=== PATIENT | male | born 1990 | race Asian ===

== ENCOUNTER 2016-12-12 01:27 | Inpatient (IN) | payer SELFPAY ==
--- NOTE | 2016-12-12 01:30 | EDPHY ---
H & P HPI/ROS: HPI CHIEF COMPLAINT: Left foot swelling, redness, infection HISTORY OF PRESENT ILLNESS: patient 26-year-old male, history of IV drug use, he presents emergency room with left foot pain swelling and redness times 48 hours. Progressively getting worse. Denies direct IV drug use into his foot. Denies chills, fever. Denies shortness of breath or chest pain. denies at other IV drug site infections, denies recent infection MRSA. Denies trauma to his foot. Past Medical History: Denies medical history Past Surgical History: back surgery Social History: denies daily alcohol does admit to IV drug use. Family History: Noncontributory ROS REVIEW OF SYSTEMS: A comprehensive 10 point review of systems is otherwise negative aside from elements mentioned in the history of present illness. Exam Constitutional triage nursing summary reviewed, vital signs reviewed, awake/ alert. Eyes normal conjunctivae and sclera, EOMI, PERRLA. HENT normal inspection, atraumatic, moist mucus membranes, no epistaxis, neck supple/ no meningismus, no raccoon eyes. Respiratory clear to auscultation bilaterally, normal breath sounds, no respiratory distress, no wheezing. Cardiovascular rate normal, regular rhythm, no murmur, no edema, distal pulses normal. Gastrointestinal soft, non-tender, no rebound, no guarding, normal bowel sounds, no distension, no pulsatile mass. Genitourinary no CVA tenderness. Musculoskeletal left foot: warm, red, swollen over the dorsum of the foot. Top of Foot: Area of induration/fluctuance 3cm x 2cm. Good pulse. Good cap refill. erythema that goes up to the ankle, no crepitus, no calf pain. Erythema has been outlined consistent with cellulitis. no midline vertebral tenderness, full range of motion, no calf swelling, no tenderness of extremities , no meningismus, good pulses, neurovascularly intact. Skin pink, warm, & dry, no rash, skin atraumatic. Neurologic awake, alert and oriented x 3, AAOx3, moves all 4 extremities equally, motor intact, sensory intact, CN II-XII intact, normal cerebellar, normal vision, normal speech. Psychiatric normal mood/affect. Heme/Lymph/Immune no lymphadenopathy. Differential Diagnosis: Includes but is not limited to in a particular MRSA skin infection, strep infection, cellulitis, foot abscess, IV drug use infection site Medical Decision Making: plan for this patient x-ray left foot to evaluate for osteo in gas. Blood cultures, lactic acid acute, IV vancomycin, patient need to be admitted given the extensive cellulitis. I will also do a bedside ultrasound to see if there is a pus pocket to I and D. Re-evaluation: 0211AM I did perform a bedside ultrasound I am unable to visualize a pus pocket that needs to be drained. Given that I do not visualize any acute area of fluid collection I will not I and D at bedside. He will most likely need an MRI of his foot for further evaluation to see if there is a small pus pocket. Orthopedics or Podiatry to see. I will admitted to the hospital for left foot cellulitis and possible abscess. IV vancomycin has been ordered. Blood cultures. It is [place] [id number]. patient is agreeable on being admitted. He is afebrile here. Vital signs stable. 0216AM: Spoke with Dr. García who agrees to admit this patient. Reason for admission left foot cellulitis. Possible abscess. Patient need MRI of foot for further evaluation. ED x-ray: left foot: soft tissue swelling. Dorsum of the foot. No gas. No osteo. Source: Patient Constitutional: Initial Vital Signs Temperature (C) 37.3 C 12/12/16 01:30 Heart Rate 102 H 12/12/16 01:30 Respiratory Rate 16 12/12/16 01:30 Blood Pressure 135/89 H 12/12/16 01:30 O2 Sat (%) 97 12/12/16 01:30 O2 Delivery Mode Room Air Allergies/Adverse Reactions: No Known Allergies Allergy (Unverified 12/12/16 01:37) Home Medications: Medication Instructions Recorded Herbals/Supplements -Info Only 1 ea PO DAILY 12/12/16 Ibuprofen/Diphenhydramine Cit 1 each PO HS PRN 12/12/16 [Advil Pm Caplet] Magnesium Oxide [Magnesium Oxide 400 mg PO DAILY 12/12/16 400 mg (*)] Cephalexin 500 mg PO QID #32 capsule 12/14/16 oxyCODONE HCL/ACETAMINOPHEN 1 each PO QID #18 tablet 12/14/16 [Percocet 5-325 mg Tablet] Medical Decision Making - Data Points Laboratory Results: Laboratory Results 12/12/16 01:45 12/12/16 01:45 Medications Given: Discontinued Medications Acetaminophen (Tylenol) 650 mg PO Q4HRS PRN PRN Reason: Pain, Mild/Fever, Can Take PO Stop: 06/10/17 02:52 Last Admin: 12/13/16 00:08 Dose: 650 mg Hydromorphone HCl (Dilaudid) 0.4 mg IVP Q4HRS PRN PRN Reason: Pain, Severe Unable to Take PO Stop: 12/22/16 03:00 Last Admin: 12/12/16 16:19 Dose: 0.4 mg Hydromorphone HCl (Dilaudid) 0.4 - 0.8 mg IVP Q2H PRN PRN Reason: Pain, Severe Unable to Take PO Stop: 12/22/16 03:00 Last Admin: 12/13/16 00:03 Dose: 0.8 mg Hydromorphone HCl (Dilaudid) 1 mg IVP ONCE ONE Stop: 12/12/16 20:01 Last Admin: 12/12/16 20:16 Dose: 1 mg Sodium Chloride (Ns) 1,000 mls @ 0 mls/hr IV ONCE ONE PRN Reason: Wide Open Stop: 12/12/16 01:36 Last Admin: 12/12/16 02:00 Dose: 1,000 mls Vancomycin HCl 1.25 gm/ (Dextrose) 250 mls @ 166.67 mls/hr IV EDNOW ONE PRN Reason: Protocol Stop: 12/12/16 03:29 Last Admin: 12/12/16 02:50 Dose: 250 mls Sodium Chloride (Ns) 1,000 mls @ 100 mls/hr IV CONT LUCIO Stop: 06/10/17 02:59 Last Admin: 12/12/16 04:24 Dose: 1,000 mls Cefazolin Sodium/Dextrose (Ancef 2 Gm (Premix)) 100 mls @ 200 mls/hr IV Q8H LUCIO PRN Reason: Protocol Stop: 01/11/17 11:44 Last Admin: 12/12/16 20:08 Dose: 100 mls Lactated Ringer's (Lr) 1,000 mls @ 0 mls/hr IV ONCE ONE PRN Reason: Per Protocol Stop: 12/12/16 13:44 Last Admin: 12/12/16 13:49 Dose: 1,000 mls Lorazepam (Ativan Injection) 1 mg IVP Q4HRS PRN PRN Reason: Anxiety, Unable to Take PO Stop: 06/10/17 20:03 Last Admin: 12/13/16 00:03 Dose: 1 mg Midazolam HCl (Versed) 2 mg IVP ONCALL ONE Stop: 12/12/16 13:58 Last Admin: 12/12/16 16:06 Dose: Not Given Morphine Sulfate (Morphine) 4 mg IVP EDNOW ONE Stop: 12/12/16 01:37 Last Admin: 12/12/16 01:58 Dose: 4 mg Ondansetron HCl (Zofran) 4 mg IVP EDNOW ONE Stop: 12/12/16 01:37 Last Admin: 12/12/16 01:55 Dose: 4 mg Oxycodone HCl (Oxycodone Ir) 5 - 10 mg PO Q3HRS PRN PRN Reason: Pain, Severe Able to Take PO Stop: 12/22/16 02:52 Last Admin: 12/13/16 00:02 Dose: 10 mg Departure - Departure Disposition: [facility] Clinical Impression: Cellulitis Qualifiers: Site of cellulitis: extremity Site of cellulitis of extremity: lower extremity Laterality: left Qualified Code(s): L03.116 - Cellulitis of left lower limb Condition: Fair
[2016-12-12] MEDS ORDERED: NS 1,000 ML IV ONE (01:35)
[2016-12-12] MEDS ORDERED: VANCOMYCIN 1.5 GM in D5W 250 ML IV ONE (01:35)
[2016-12-12] MEDS ORDERED: ONDANSETRON 4 MG/2 ML VIAL IVP ONE (01:36)
[2016-12-12 01:51] LABS: % IMMATURE GRANULYOCYTES 0.5 % (0.0-1.1); ABSOLUTE IMMATURE GRANULOCYTES 0.09 10^3/uL (0.00-0.10); ADD DIFF? NO; ADD MORPH? NO; ADD SCAN? NO; ATYPICAL LYMPHOCYTE FLAG 20 (0-99); FRAGMENT RBC FLAG 0 (0-99); HEMATOCRIT 40.5 % (40.0-51.0); LEFT SHIFT FLG 0 (0-99); LIPEMIA HEMOLYSIS FLAG 90 (0-99); MEAN CELL HEMOGLOBIN 34.4 pg (27.9-34.1); MEAN CELL HEMOGLOBIN CONCENTR. 34.6 g/dL (32.4-36.7); MEAN CELL VOLUME 99.5 fL (81.5-99.8); MEAN PLATELET VOLUME 9.8 fL (8.7-11.7); PLATELET CLUMPS FLAG 30 (0-99); PLATELET COUNT 225 10^3/uL (150-400); RED BLOOD CELL COUNT 4.07 10^6/uL (4.40-6.38); RED CELL DISTRIBUTION WIDTH 12.3 % (11.5-15.2)
[2016-12-12 02:00] LABS: SEDIMENTATION RATE 24 MM/HR (0-15)
[2016-12-12] MEDS ORDERED: VANCOMYCIN 1.25 GM in D5W 250 ML IV ONE (02:00)
[2016-12-12 02:15] LABS: ANION GAP 12 mEq/L (8-16); C-REACTIVE PROTEIN 53.7 mg/L (<10.0); CALCIUM 9.2 mg/dL (8.5-10.4); CARBON DIOXIDE 23 mEq/l (22-31); CHLORIDE 106 mEq/L (97-110); CREATININE 0.8 mg/dL (0.7-1.3); GLOMERULAR FILTRATION RATE > 60; GLUCOSE 99 mg/dL (70-100); SODIUM 141 mEq/L (134-144)
[2016-12-12 02:46] LABS: PROCALCITONIN 0.14 ng/mL (0.02-0.10)
[2016-12-12] MEDS ORDERED: ONDANSETRON 4 MG/2 ML VIAL IVP PRN (02:53)
[2016-12-12] MEDS ORDERED: ONDANSETRON DISINTEGRATING 4 MG TAB PO PRN (02:53)
[2016-12-12] MEDS ORDERED: NS 1,000 ML IV SCH (03:00)
[2016-12-12] MEDS ORDERED: NICOTINE 14 MG/24 HR PATCH TD PRN (03:05)
--- NOTE | 2016-12-12 04:16 | GHP ---
[f rep st] HISTORY AND PHYSICAL DATE OF ADMISSION: 12/12/2016 CHIEF COMPLAINT: Left foot pain. HISTORY OF PRESENT ILLNESS: The patient is a 26-year-old male with a history of IV drug abuse who presents to the emergency department complaining of left foot redness, swelling, and pain. His symptoms started approximately 2 days ago with aching and redness. The redness has spread across the dorsum of his foot and up into the ankle. He now has a very sore lump on the dorsum of his left foot which has been rubbing against his shoe and causing quite a bit of pain. He denies fevers, chills, or rigors. He denies chest pain or shortness of breath. He reports he last used IV heroin approximately 5 hours ago. He is using about a quarter of a gram per day and uses a very small amount every 5-6 hours to avoid withdrawal. He injects into his arms bilaterally. He denies injection into other sites including his foot. He denies any trauma or injury to the foot. He has no prior history of abscess or MRSA infections. He was clean from heroin for several months after having a naltrexone implant placed in 09/2015. He believes it was supposed to last for 12 months. In September of this year, he tried smoking heroin and noticed that it worked. He has continued to use IV heroin since then. He has obtained Suboxone off the street and intermittently uses this to fend off withdrawal. In the emergency department, he received a L of normal saline. Blood cultures were drawn. He was given 1.25 grams of vancomycin. He is admitted to the hospital for further management. PAST MEDICAL HISTORY: 1. Opioid dependence using IV heroin. 2. Tobacco abuse. MEDICATIONS: None. ALLERGIES: No known drug allergies. 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 He smokes half pack of cigarettes per day. He reports occasional alcohol use. He uses IV heroin, a quarter of a gram a day. FAMILY HISTORY: His parents are both alive and healthy. REVIEW OF SYSTEMS: A 10-point review of systems was performed and is negative except as per HPI. OBJECTIVE: VITAL SIGNS: Temperature is 37.3, blood pressure 135/89, heart rate 102, respiratory rate 16. He is 97% on room air. GENERAL: The patient is awake, alert, oriented, in no acute distress. HEENT: Head is atraumatic, normocephalic. Pupils equal, round, and reactive to light. Extraocular muscles intact. Oropharynx is clear. Mucous membranes are moist. NECK: Supple. There is no JVD. HEART: Regular rate and rhythm without murmur. LUNGS: Clear to auscultation bilaterally. ABDOMEN: Soft, nondistended, nontender with normoactive bowel sounds. EXTREMITIES: Warm, well perfused with 2+ peripheral pulses. His left foot has a 3-4 cm palpable area of fluctuance across the dorsum of his foot in the region of his 1st and 2nd metatarsal. There is surrounding erythema which spreads proximally to the ankle region and spreads across the dorsum of his foot abutting the plantar surface. There is no drainage or purulence and therefore cultures are not obtained. Foot x-ray is personally reviewed and interpreted and appears negative for any subcutaneous air or obvious evidence of osteomyelitis. ASSESSMENT AND PLAN: The patient is a 26-year-old male, admitted to the hospital with a history of IV drug abuse. He is admitted to the hospital with a left foot cellulitis and suspected abscess. 1. Sepsis secondary to left foot cellulitis. He meets systemic inflammatory response syndrome criteria for sepsis based on heart rate of 102 and white blood cell count of 19,000. Lactate and renal function are normal. Blood cultures are drawn. He received a L of saline in the emergency department and 1.25 g of vancomycin. Will continue the vancomycin. I do not hear a heart murmur. An MRI is ordered for the morning. Will request a podiatry consult in the morning as this may warrant operative drainage. Pain control with Tylenol, p.r.n. oxycodone, and p.r.n. IV Dilaudid. The patient is made n.p.o. for now until it is determined whether or not he needs I&D. 2. Opioid dependence. The patient is an active IV drug user. He will require pain control with opioid pain medications, thus he is unlikely to withdraw. I advised him to not take any of his Suboxone which he has obtained off the street and uses intermittently, as this may precipitate withdrawal if he has active opiates on board. Will send HIV and hepatitis C screening tests. Case management consult to review community resources for Naltrexone as pt is interested in treatment. 3. Tobacco abuse p.r.n. NicoDerm patch is ordered. 4. Deep venous thrombosis prophylaxis. Patient is low risk. We will place SCDs for now in the event he undergoes operative intervention tomorrow. CODE STATUS: Patient is full code. DISPOSITION: Patient admitted to inpatient status will likely require greater than 48 hours hospitalization for ongoing management of his left cellulitis with suspicion for associated abscess. /[id number]/MODL MTDD
[2016-12-12] MEDS: HYDROmorphONE/DILAUDID 1 MG/ML SYR IVP PRN ×3 (04:25→16:19)
[2016-12-12] MEDS: oxyCODONE IR 5 MG TAB PO PRN ×4 (04:26→20:10)
[2016-12-12] MEDS: ACETAMINOPHEN 325 MG TAB PO PRN ×3 (04:35→20:09)
[2016-12-12 07:22] LABS: PHENCYCLIDINE URINE BCH < 6 ng/ml (NEGATIVE); PHENCYCLIDINE URINE BCH NEGATIVE (NEGATIVE)
[2016-12-12] MEDS ORDERED: GADOBUTROL 10 ML VIAL IVP ONE (07:23)
[2016-12-12 07:33] LABS: TETRAHYDROCANNABINOL URINE 243 ng/mL (NEGATIVE)
--- NOTE | 2016-12-12 12:03 | HOSPPROG ---
Hospitalist Progress Note Assessment/Plan: * right lower extremity cellulitis and abscess * IV Ancef * podiatry will see probably needs drainage * heroin abuse Subjective: Leg feels little better Objective: Vital Signs Temp Pulse Resp BP Pulse Ox 36.8 C 67 14 95/57 L 98 12/12/16 07:49 12/12/16 07:49 12/12/16 07:49 12/12/16 07:49 12/12/16 07:49 12/11/16 12/12/16 12/13/16 05:59 05:59 05:59 Intake Total 1250 Output Total 700 Balance 1250 -700 MRI results reviewed - Physical Exam Constitutional: no apparent distress, appears nourished, not in pain Eyes: anicteric sclera, EOMI Ears, Nose, Mouth, Throat: moist mucous membranes, hearing normal Cardiovascular: regular rate and rhythym, no murmur, rub, or gallop Respiratory: no respiratory distress Gastrointestinal: normoactive bowel sounds, soft, non-tender abdomen, no palpable masses Musculoskeletal: other ( right foot with improving erythema but large fluctuant area on dorsum of foot) Neurologic: AAOx3 ICD10 Worksheet Patient Problems: Problems Problem Status Onset Cellulitis Acute
[2016-12-12] MEDS: ceFAZolin 2 GM/DEXTROSE 100 ML IV SCH ×2 (13:30→20:08)
[2016-12-12] MEDS ORDERED: LR 1,000 ML IV ONE (13:43)
[2016-12-12] MEDS ORDERED: MIDAZOLAM 2 MG/2 ML VIAL IVP ONE (13:57)
[2016-12-12] MEDS ORDERED: VANCOMYCIN HCL/NORMAL SALINE 250 ML IV SCH (14:00)
--- NOTE | 2016-12-12 14:02 | PDANEPAE ---
ANE History of Present Illness Infected foot ANE Past Medical History - Cardiovascular History Hx Hypertension: No Hx Arrhythmias: No Hx Chest Pain: No Hx Coronary Artery / Peripheral Vascular Disease: No Hx CHF / Valvular Disease: No Hx Palpitations: No - Pulmonary History Hx COPD: No Hx Asthma/Reactive Airway Disease: No Hx Recent Upper Respiratory Infection: No Hx Oxygen in Use at Home: No Hx Sleep Apnea: No Sleep Apnea Screening Result - Last Documented: Negative - Endocrine History Hx Diabetes: No Hypothyroid: No Hyperthyroid: No Obesity: no ANE Review of Systems Review of systems is: negative ANE Patient History - Allergies Allergies/Adverse Reactions: No Known Allergies Allergy (Unverified 12/12/16 01:37) - Home Medications Home Medications: Herbals/Supplements -Info Only 1 ea PO DAILY 12/12/16 [Last Taken Unknown] Ibuprofen/Diphenhydramine Cit [Advil Pm Caplet] 1 each PO HS PRN 12/12/16 [Last Taken 12/11/16] Magnesium Oxide [Magnesium Oxide 400 mg (*)] 400 mg PO DAILY 12/12/16 [Last Taken 12/10/16] - NPO status NPO Since - Liquids (Date): 12/12/16 NPO Since - Liquids (Time): 07:00 NPO Since - Solids (Date): 12/12/16 NPO Since - Solids (Time): 07:00 - Smoking Hx Smoking Status: Current every day smoker ANE Labs/Vital Signs - Labs Result Diagrams: 12/12/16 01:45 12/12/16 01:45 - Vital Signs Blood Pressure: 94/59 Heart Rate: 66 Respiratory Rate: 12 O2 Sat (%): 97 Height: 175.26 cm Weight: 54.43 kg ANE Physical Exam - Airway Mallampati Score: Class 2 Mouth exam: normal dental/mouth exam - Pulmonary Pulmonary: no respiratory distress - Cardiovascular Cardiovascular: regular rate and rhythym - ASA Status ASA Status: II ANE Anesthesia Plan Anesthesia Plan: GA w LMA
[2016-12-12] MEDS ORDERED: fentaNYL 100 MCG/2 ML INJ ONE ×2 (14:08)
[2016-12-12] MEDS ORDERED: PROPOFOL 200 MG/20 ML VIAL ONE ×2 (14:09)
[2016-12-12] MEDS ORDERED: BUPIVACAINE 0.5% 30 ML SDV ONE (14:19)
[2016-12-12] MEDS ORDERED: DEXAMETHASONE 4 MG/ML VIAL ONE (14:19)
[2016-12-12] MEDS ORDERED: ROPIVACAINE HCL 20 MG/10 ML INJ EP ONE (14:19)
[2016-12-12] MEDS ORDERED: BACITRACIN 50,000 UNITS/10 ML SYR IRR ONE (14:20)
[2016-12-12] MEDS ORDERED: POLYMYXIN B SULFATE 500,000 UNIT/10 ML SYR IRR ONE (14:20)
[2016-12-12] MEDS ORDERED: LIDOCAINE 1% 300 MG/30 ML SDV ONE (14:45)
[2016-12-12] MEDS ORDERED: VANCOMYCIN 1 GM VIAL ONE ×2 (14:58→15:07)
--- NOTE | 2016-12-12 15:42 | POSTOPPROG ---
Post Op Note Date of Operation: 12/12/16 Surgeon: Yeimi Ramirez Boat Buffer Plastic: none Anesthesiologist: barry carranza MD Anesthesia: IV Sedation Pre-op Diagnosis: infection /abscess left foot Post-op Diagnosis: same Indication: infection, cellulitis , abscess left foot Procedure: incision and drainage left foot Findings: abscess with purluent drainage dorsal proximal first IMS / medialcuneiform Inf/Abcess present in the surg proc area at time of surgery?: Yes Depth: Deep Incisional (Fascial) EBL: Minimal Complications: none Drains: Other (iodoform nugauze , 1/4" packed , 3 strips one going medially, one laterally and one proximal direction)
[2016-12-12] MEDS ORDERED: HYDROCODONE/APAP 5/325 TAB PO PRN (16:26)
[2016-12-12] MEDS ORDERED: METOCLOPRAMIDE 10 MG/2 ML VIAL IVP PRN (16:26)
[2016-12-12] MEDS ORDERED: fentaNYL 100 MCG/2 ML INJ IVP PRN (16:26)
[2016-12-12] MEDS ORDERED: DEXAMETHASONE 4 MG/ML VIAL IVP PRN (16:26)
[2016-12-12] MEDS ORDERED: LABETALOL HCL 50 MG/10 ML SYR IVP PRN (16:26)
[2016-12-12] MEDS ORDERED: PROMETHAZINE HCL 25 MG/ML INJ IVP PRN (16:26)
[2016-12-12] MEDS ORDERED: LR 500 ML IV PRN (16:26)
[2016-12-12] MEDS ORDERED: OXYCODONE/APAP 5/325 TAB PO PRN (16:26)
[2016-12-12] MEDS ORDERED: HYDROmorphONE/DILAUDID 1 MG/ML SYR IVP PRN ×2 (16:26→20:04)
[2016-12-12] MEDS ORDERED: NALOXONE HCL 0.4 MG/ML INJ IVP PRN (16:26)
--- NOTE | 2016-12-12 16:31 | POSTANESTH ---
Post Anesthetic Evaluation Cardiovascular Status: Normal, Stable Respiratory Status: Normal, Stable Level of Consciousness/Mental Status: Can Participate in Eval Pain Control: Adequate, Prn Tx Ordered Nausea/Vomiting Control: Adequate, Prn Tx Ordered Complications Possibly Related to Anesthesia: None Noted
--- NOTE | 2016-12-12 16:32 | GOP ---
[f rep st] OPERATIVE REPORT DATE OF OPERATION: 12/12/2016 SURGEON: Yeimi Ramirez DPM ANESTHESIA: Local with IV sedation, light general. ANESTHESIOLOGIST: Sarah Weston MD. PREOPERATIVE DIAGNOSIS: Infection, abscess, cellulitis, left foot. POSTOPERATIVE DIAGNOSIS: Infection, abscess, cellulitis, left foot. PROCEDURE PERFORMED: Incision and drainage, left foot. FINDINGS: Purulent drainage encompassing a 4 to 6 cm area. INDICATIONS: MRI confirming abscess dorsal mid foot, elevated white blood cells , advanced cellulitis/pain/edema left foot, history of heroin abuse. DESCRIPTION OF PROCEDURE: Patient was brought into the operating room, placed on the operating table in a supine position. Intravenous sedation administered by the anesthesiologist. A peripheral nerve block was obtained utilizing a total of 20 cc of a 1:1 mix of 0.5% Marcaine plain and 1% lidocaine plain. The lower extremity was prepped and draped in the usual sterile manner. The limb was elevated and lightly exsanguinated with an Esmarch bandage. An ankle tourniquet was inflated to 220 mmHg. Webril padding utilized under the cuff. Purpose of the tourniquet was to ensure no damage to the dorsalis pedis artery where abscess was noted. Attention was directed toward the proximal 1st intermetatarsal space medial cuneiform where tissue was bulbous and with erythema. A curvilinear incision was created measuring approximately 3-4 cm in length. Incision carefully deepened with care to retract neurovascular structures. With superficial dissection, purulent drainage was noted and approximately 3-4 cc drained. Site was swabbed. Aerobic, anaerobic, fungal, sent to the lab. The wound was then copiously irrigated with 3 L of vancomycin solution. Upon inspection, undermining of the soft tissue involved approximately 3 cm extending medially, laterally, and proximally to the area of the abscess. Utilizing iodoform 1/4" nugauzze , these sites were lightly packed. Prior to closure of wound,the tourniquet was released, and a normal hyperemic response was noted to all digits. Bleeding controlled. Skin was closed with 4-0 Prolene in a simple interrupted suture manner. Dressings included a wet-to-dry dressing, 4 x 4's, Kerlix, tape reinforced with an Sy bandage. Patient tolerated procedure and anesthesia well, left the operating room vital signs stable and vascular status intact to all digits. He will return to his room on the floor and will continue to receive IV antibiotics. Await lab report to help guide antibiotic selection. LABS: Aerobic , anerobic, fungal cultures of wound ordered. /[id number]/MODL MTDD
[2016-12-12 17:42] LABS: % IMMATURE GRANULYOCYTES 0.5 % (0.0-1.1); ABSOLUTE IMMATURE GRANULOCYTES 0.06 10^3/uL (0.00-0.10); ADD DIFF? NO; ADD MORPH? NO; ADD SCAN? NO; ATYPICAL LYMPHOCYTE FLAG 30 (0-99); FRAGMENT RBC FLAG 0 (0-99); HEMATOCRIT 40.3 % (40.0-51.0); HEMOGLOBIN 13.8 g/dL (13.7-17.5); LEFT SHIFT FLG 0 (0-99); LIPEMIA HEMOLYSIS FLAG 90 (0-99); MEAN CELL HEMOGLOBIN 34.3 pg (27.9-34.1); MEAN CELL HEMOGLOBIN CONCENTR. 34.2 g/dL (32.4-36.7); MEAN CELL VOLUME 100.2 fL (81.5-99.8); MEAN PLATELET VOLUME 10.1 fL (8.7-11.7); PLATELET CLUMPS FLAG 0 (0-99); PLATELET COUNT 212 10^3/uL (150-400); RED BLOOD CELL COUNT 4.02 10^6/uL (4.40-6.38); RED CELL DISTRIBUTION WIDTH 12.3 % (11.5-15.2)
[2016-12-12] MEDS ORDERED: HYDROmorphONE/DILAUDID 1 MG/ML SYR IVP ONE (20:00)
--- NOTE | 2016-12-12 20:08 | HOSPPROG ---
Hospitalist Progress Note Assessment/Plan: Called by nursing for concerns that patient had been locked in the bathroom with his girlfriend, they refused to come out when asked to by nursing staff. When door finally opened, there was note of blood by the sink. Security was present and it was requested that girlfriend show contents of her bag but she refused and ran away crying. It was explained to patient that GF would not be allowed to come back to visit. She did return this evening however, security was called and GF asked to leave. Patient distressed and asking that she be allowed back. He also notes his withdrawal is now severe and that he needs his girlfriend present to get through the night. Explained reasons she will not be allowed back tonight--patient safely and hospital liability. Offered that if she returns tomorrow and is willing to comply with having bags examined and visiting only in public, we could start with that. patient agrees. Given additional opiates to help with withdrawal. Objective: Vital Signs Temp Pulse Resp BP Pulse Ox 37.0 C 70 14 110/68 100 12/12/16 18:10 12/12/16 18:10 12/12/16 18:10 12/12/16 18:10 12/12/16 18:10 Laboratory Results 12/12/16 17:33 12/11/16 12/12/16 12/13/16 05:59 05:59 05:59 Intake Total 1250 350 Output Total 700 Balance 1250 -350 ICD10 Worksheet Patient Problems: Problems Problem Status Onset Cellulitis Acute
[2016-12-12] MEDS: LORazepam 2 MG/ML INJ IVP PRN (20:22)
[2016-12-12 20:33] VITALS: RESP 16; O2SAT 96
[2016-12-12 23:58] VITALS: BP 100/49; PULSE 69; TEMP 98.8
[2016-12-13] MEDS: oxyCODONE IR 5 MG TAB PO PRN (00:02)
[2016-12-13] MEDS: LORazepam 2 MG/ML INJ IVP PRN (00:03)
[2016-12-13] MEDS: ACETAMINOPHEN 325 MG TAB PO PRN (00:08)
[2016-12-13] MEDS ORDERED: MAGNESIUM OXIDE 400 MG TAB PO SCH (09:00)
== END 2016-12-13 01:30 | disposition left against medical advice (07) | DRG 580 ==
LOC: F3N 03:50
PROVIDERS: ADMIT Hospitalist; ATTEND Hospitalist
PROC: 0J9R0ZZ Drainage of Left Foot Subcutaneous Tissue and Fascia, Open Approach (ICD-10-PCS; principal; 2016-12-12 14:00)
DX: L02.612 Cutaneous abscess of left foot (principal); L03.116 Cellulitis of left lower limb; F11.20 Opioid dependence, uncomplicated; F17.210 Nicotine dependence, cigarettes, uncomplicated
CPT/HCPCS: 80307; 96374; A9585; G0472; G0480; J0690; J1100; J1170; J2060; J2250; J2405; J2704; J2795; J3010; J3370

== ENCOUNTER 2016-12-13 04:36 | Inpatient (IN) | payer SELFPAY ==
--- NOTE | 2016-12-13 04:48 | EDPHY ---
H & P Stated Complaint: left foot cellulitis- left AMA today at midnight HPI/ROS: HPI CHIEF COMPLAINT: Left foot cellulitis. Left against medical advice. Now returns. HISTORY OF PRESENT ILLNESS: Patient 26-year-old male, previously admitted to the hospital by myself for left foot cellulitis. He had an MRI an I and D. Left against medical advice late last night. Now returns to the emergency room at 5 o'clock in the morning with worsening left foot redness and swelling and pain. He is requesting readmission. Denies fever. However he has been walking on it. Past Medical History: No significant medical history except for IV drug use Past Surgical History: Recent left foot I and D. Social History: Daily tobacco. IV drug use. Family History: Noncontributory ROS REVIEW OF SYSTEMS: A comprehensive 10 point review of systems is otherwise negative aside from elements mentioned in the history of present illness. Exam Constitutional triage nursing summary reviewed, vital signs reviewed, awake/ alert. Eyes normal conjunctivae and sclera, EOMI, PERRLA. HENT normal inspection, atraumatic, moist mucus membranes, no epistaxis, neck supple/ no meningismus, no raccoon eyes. Respiratory clear to auscultation bilaterally, normal breath sounds, no respiratory distress, no wheezing. Cardiovascular rate normal, regular rhythm, no murmur, no edema, distal pulses normal. Gastrointestinal soft, non-tender, no rebound, no guarding, normal bowel sounds, no distension, no pulsatile mass. Genitourinary no CVA tenderness. Musculoskeletal left foot: Swelling to left foot, erythema. Dressing in place 1 stress removed. There is a midline incision with packing in place. No crepitus. no midline vertebral tenderness, full range of motion, no calf swelling, no tenderness of extremities, no meningismus, good pulses, neurovascularly intact. Skin pink, warm, & dry, no rash, skin atraumatic. Neurologic awake, alert and oriented x 3, AAOx3, moves all 4 extremities equally, motor intact, sensory intact, CN II-XII intact, normal cerebellar, normal vision, normal speech. Psychiatric normal mood/affect. Heme/Lymph/Immune no lymphadenopathy. Differential Diagnosis: Includes but is not limited to in a particular order worsening left foot cellulitis, left foot infection. Left foot abscess. Medical Decision Making: Plan for this patient IV establishment, blood draw. Will readmit to the hospitalist service for left foot cellulitis. Re-evaluation: 0513AM: Patient has been admitted back to the hospitalist service. Spoke with Dr. Rivero. She agrees to admit the patient back. Source: Patient - Personal History Current Tetanus/Diphtheria Vaccine: Yes Current Tetanus Diphtheria and Acellular Pertussis (TDAP): Yes Tetanus Vaccine Date: 2015 - Medical/Surgical History Hx Asthma: No Hx Chronic Respiratory Disease: No Hx Diabetes: No Hx Cardiac Disease: No Hx Renal Disease: No Hx Cirrhosis: No Hx Alcoholism: No Hx HIV/AIDS: No Hx Splenectomy or Spleen Trauma: No Other PMH: IV drug use, back surgery - Social History Smoking Status: Current every day smoker Constitutional: Initial Vital Signs Temperature (C) 37.2 C 12/13/16 04:37 Heart Rate 97 12/13/16 04:37 Respiratory Rate 16 12/13/16 04:37 Blood Pressure 105/63 12/13/16 04:37 O2 Sat (%) 99 12/13/16 04:37 O2 Delivery Mode Room Air Allergies/Adverse Reactions: No Known Allergies Allergy (Unverified 12/12/16 01:37) Home Medications: Medication Instructions Recorded Herbals/Supplements -Info Only 1 ea PO DAILY 12/12/16 Ibuprofen/Diphenhydramine Cit 1 each PO HS PRN 12/12/16 [Advil Pm Caplet] Magnesium Oxide [Magnesium Oxide 400 mg PO DAILY 12/12/16 400 mg (*)] Departure - Departure Disposition: [facility] Acute Clinical Impression: Cellulitis of left foot Condition: Fair
[2016-12-13 05:41] LABS: % IMMATURE GRANULYOCYTES 0.6 % (0.0-1.1); ABSOLUTE IMMATURE GRANULOCYTES 0.09 10^3/uL (0.00-0.10); ADD DIFF? NO; ADD MORPH? NO; ADD SCAN? NO; ATYPICAL LYMPHOCYTE FLAG 20 (0-99); FRAGMENT RBC FLAG 0 (0-99); HEMATOCRIT 37.4 % (40.0-51.0); HEMOGLOBIN 12.9 g/dL (13.7-17.5); LEFT SHIFT FLG 0 (0-99); LIPEMIA HEMOLYSIS FLAG 90 (0-99); MEAN CELL HEMOGLOBIN 34.6 pg (27.9-34.1); MEAN CELL HEMOGLOBIN CONCENTR. 34.5 g/dL (32.4-36.7); MEAN CELL VOLUME 100.3 fL (81.5-99.8); MEAN PLATELET VOLUME 10.2 fL (8.7-11.7); PLATELET CLUMPS FLAG 0 (0-99); PLATELET COUNT 230 10^3/uL (150-400); RED BLOOD CELL COUNT 3.73 10^6/uL (4.40-6.38); RED CELL DISTRIBUTION WIDTH 12.3 % (11.5-15.2)
[2016-12-13 05:54] LABS: ANION GAP 16 mEq/L (8-16); CALCIUM 8.6 mg/dL (8.5-10.4); CARBON DIOXIDE 22 mEq/l (22-31); CHLORIDE 106 mEq/L (97-110); CREATININE 0.6 mg/dL (0.7-1.3); GLOMERULAR FILTRATION RATE > 60; GLUCOSE 112 mg/dL (70-100); POTASSIUM 4.1 mEq/L (3.5-5.2); SODIUM 144 mEq/L (134-144)
[2016-12-13] MEDS ORDERED: ONDANSETRON 4 MG/2 ML VIAL IVP PRN (07:36)
--- NOTE | 2016-12-13 08:23 | GHP ---
[f rep st] HISTORY AND PHYSICAL DATE OF ADMISSION: 12/13/2016 CHIEF COMPLAINT: Foot infection. HISTORY: The patient is a 26-year-old male admitted to the hospital yesterday for a left foot infec tion. MRI showed abscess without osteomyelitis. He went to surgery with Dr. Yeimi Ramirez and had i ncision and drainage. He left AMA in the middle of the night and has now returned to the emergency room for readmission. He has a history of IV drug abuse and locked himself in the bathroom with his girlfriend for 20 minutes. Girlfriend had a backpack which she refused to be searched when the doo r was open. There was concern for active IV drug abuse in the bathroom. His girlfriend was told sh e is not allowed to return and the patient became very distressed. He subsequently disappeared and left the hospital without notifying nursing and was discharged. Just prior to this he was told his girlfriend could return to visit only if she allowed her bags to be searched. At this time patient complains of severe withdrawal symptoms as well as severe pain in the foot. Please refer to H and P done on December 12 for further details regarding initial presentation. PAST MEDICAL HISTORY: 1. IV drug abuse with heroin. 2. Naltrexone implant. MEDICATIONS: Please see computer record for full detailed list. ALLERGIES: No known drug allergies. SOCIAL HISTORY: He smokes a half a pack per day. He uses IV drugs daily. Occasional alcohol. 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 His dad is at bedside. REVIEW OF SYSTEMS: Complete review of systems obtained. Review of systems is negative regarding co nstitutional, HEENT, GI, pulmonary, cardiovascular, , hematology, skin, muscular, endocrine, and p sych except for positives as in HPI. FAMILY HISTORY: Reviewed, noncontributory to presenting complaint. PHYSICAL EXAMINATION: GENERAL: Well-developed, well-nourished male, in no acute distress. VITAL S IGNS: Temperature is 36.9, pulse 84, blood pressure 109/63, saturating 100% on room air. EYE: Nor mal conjunctiva. Pupils equal and react to light. ENT: Normal ears, nose. Hearing intact. Latos[place] l teeth. Oropharynx moist. NECK: Trachea midline. No thyromegaly. CHEST: Normal effort. LUNGS : Clear to auscultation bilaterally. CARDIOVASCULAR: Regular rate and rhythm. No murmur. No low er extremity edema. ABDOMEN: Soft, nontender. No hepatosplenomegaly. SKIN: Left lower extremity does have erythema above the ankle. He has a postsurgical dressing which I did not remove. Erythe ma extends above the dressing up the leg. MUSCULOSKELETAL: No cyanosis or clubbing. Strength 5/5 upper and lower extremities. NEUROLOGIC: Cranial nerves intact. Normal sensation to light touch. PSYCHIATRIC: Alert and oriented x3. Normal affect. Normal judgment. Normal memory. LABORATORY DATA: White count 15.08, hematocrit 37.4, platelets 230. Sodium 144, potassium 4.1, chl oride 106, bicarb 22, BUN 9, creatinine 0.6, glucose 112. Tox screen was positive for cocaine and m arijuana, in addition opiates. HIV negative. Hepatitis C negative. MRI of the foot shows abscess without osteomyelitis. MEDICAL RECORDS REVIEW: Please see HPI. I reviewed last hospitalization in detail including H and P and presentation and hospital course. He was being treated with IV Ancef. Went to surgery yester day with Yeimi Ramirez. ASSESSMENT/PLAN: 1. Left foot infection with cellulitis and abscess, status post incision and drainage. He was on I V Ancef during his last hospitalization which I will continue. Unfortunately, no intraoperative cul tures were sent during the I and D. Will try to swab any drainage from the abscess and send for cul ture. Need to rule out methicillin-resistant Staphylococcus aureus as he does have quite a bit of r emaining erythema and unclear whether or not he is responding to the IV Ancef. He may need an Infec tious Disease consultation. We will consult Wound Care. 2. IV drug abuse now with opiate withdrawal. He was getting oxycodone and IV Dilaudid for pain con trol and withdrawal prior to his leaving against medical advice. He was advised that these will be weaned off prior to discharge. I think we can continue with the policy that his girlfriend is only allowed to return to visit if she allows her bag to be searched. The patient needs to be monitored closely for drug abuse in his room. 3. Tobacco dependence. Will prescribe a nicotine patch. CODE STATUS: Full. ADMISSION STATUS: Will admit to inpatient as I anticipate greater than 2 midnights required given s everity of infection. DVT PROPHYLAXIS: He is moderate risk. Will place on subcu Lovenox. /[id number]/MODL
[2016-12-13] MEDS: ENOXAPARIN 40 MG/0.4 ML SYR SC SCH (08:53)
[2016-12-13] MEDS: oxyCODONE IR 5 MG TAB PO PRN ×4 (09:00→22:26)
[2016-12-13] MEDS: LORazepam 0.5 MG TAB PO PRN ×4 (09:01→22:25)
[2016-12-13] MEDS ORDERED: ceFAZolin 2 GM/DEXTROSE 100 ML IV SCH (09:30)
[2016-12-13] MEDS: KETOROLAC 30 MG/1 ML SDV IVP PRN ×2 (09:41→16:48)
[2016-12-13] MEDS: HYDROmorphONE/DILAUDID 1 MG/ML SYR IVP PRN ×6 (09:41→22:58)
--- NOTE | 2016-12-13 09:41 | HOSPPROG ---
Hospitalist Progress Note Assessment/Plan: 26-year-old with a history of heroin abuse, IV is admitted with left foot abscess, no evidence of osteomyelitis. He is status post I and D yesterday and left AMA. He returned this morning, brought in by his dad for ongoing treatment of his foot wound. # cellulitis and abscess: High risk for MR WILSON given his history of heroin abuse. Discussed with Dr. Verdugo from Infectious Disease she recommends treating him with vancomycin while he is in the hospital and transitioning him to doxycycline as an outpatient. * Monitor his wound for 1 day here * Start Vanco, pharmacy to dose * Transition to doxycycline when clear improvement in his leg wound on Vanco. * He will need to establish care with a physician outside hospital. # IV here in abuse. * Negative for HIV and hep C * Plans on using Suboxone as an outpatient for heroin use # tobacco use, nicotine patch Subjective: Patient says his foot feels better although he continues to have a high white count. Patient new to me and chart reviewed. Objective: Vital Signs Temp Pulse Resp BP Pulse Ox 36.8 C 101 H 16 115/63 97 12/13/16 08:50 12/13/16 08:50 12/13/16 08:50 12/13/16 08:50 12/13/16 08:50 Laboratory Results 12/13/16 05:30 12/13/16 05:30 - Physical Exam Constitutional: uncomfortable Eyes: PERRL Cardiovascular: regular rate and rhythym Respiratory: no respiratory distress, no rales or rhonchi Skin: erythema, induration, other (Wound clean healing no exudates noted) ICD10 Worksheet Patient Problems: Problems Problem Status Onset Cellulitis Acute Cellulitis of left foot Acute
[2016-12-13] MEDS: NICOTINE 14 MG/24 HR PATCH TD SCH (09:46)
[2016-12-13] MEDS: VANCOMYCIN HCL/NORMAL SALINE 250 ML IV SCH ×2 (09:53→22:24)
[2016-12-13] MEDS: ACETAMINOPHEN 325 MG TAB PO PRN ×2 (14:22→22:26)
[2016-12-13 15:34] VITALS: RESP 16
[2016-12-14] MEDS: HYDROmorphONE/DILAUDID 1 MG/ML SYR IVP PRN ×6 (00:52→11:32)
[2016-12-14] MEDS: oxyCODONE IR 5 MG TAB PO PRN ×3 (02:26→11:33)
[2016-12-14] MEDS: LORazepam 0.5 MG TAB PO PRN ×3 (02:26→11:33)
[2016-12-14 04:57] LABS: % IMMATURE GRANULYOCYTES 0.4 % (0.0-1.1); ABSOLUTE IMMATURE GRANULOCYTES 0.03 10^3/uL (0.00-0.10); ADD DIFF? NO; ADD MORPH? NO; ADD SCAN? NO; ATYPICAL LYMPHOCYTE FLAG 50 (0-99); FRAGMENT RBC FLAG 0 (0-99); HEMATOCRIT 36.8 % (40.0-51.0); HEMOGLOBIN 12.4 g/dL (13.7-17.5); LEFT SHIFT FLG 0 (0-99); LIPEMIA HEMOLYSIS FLAG 80 (0-99); MEAN CELL HEMOGLOBIN CONCENTR. 33.7 g/dL (32.4-36.7); MEAN CELL VOLUME 100.8 fL (81.5-99.8); MEAN PLATELET VOLUME 9.9 fL (8.7-11.7); PLATELET CLUMPS FLAG 0 (0-99); PLATELET COUNT 241 10^3/uL (150-400); RED BLOOD CELL COUNT 3.65 10^6/uL (4.40-6.38); RED CELL DISTRIBUTION WIDTH 12.2 % (11.5-15.2)
[2016-12-14 05:14] VITALS: O2SAT 96
[2016-12-14 05:20] LABS: ANION GAP 8 mEq/L (8-16); CARBON DIOXIDE 23 mEq/l (22-31); CHLORIDE 111 mEq/L (97-110); CREATININE 0.7 mg/dL (0.7-1.3); GLOMERULAR FILTRATION RATE > 60; GLUCOSE 106 mg/dL (70-100); POTASSIUM 4.4 mEq/L (3.5-5.2); SODIUM 142 mEq/L (134-144)
[2016-12-14 08:50] VITALS: BP 110/55; PULSE 69; TEMP 97.6
[2016-12-14] MEDS: NICOTINE 14 MG/24 HR PATCH TD SCH (08:55)
[2016-12-14] MEDS: ENOXAPARIN 40 MG/0.4 ML SYR SC SCH (08:55)
[2016-12-14] MEDS: VANCOMYCIN HCL/NORMAL SALINE 250 ML IV SCH (09:50)
[2016-12-14] MEDS: MAGNESIUM OXIDE 400 MG TAB PO SCH ×2 (10:12→11:33)
--- NOTE | 2016-12-14 10:46 | GDS ---
[f rep st] DISCHARGE SUMMARY DIAGNOSES: 1. Cellulitis, abscess of his left foot, status post I and D. 2. Active IV heroin use. CONSULTATION: Dr. Yeimi Ramirez, podiatry. HOSPITAL COURSE: The patient is a 26-year-old, who was admitted to the hospital initially on the 6t h for cellulitis and abscess. At that admission, he underwent an I and D by Dr. Ramirez. Cultures gr ew out MSSA, and he had wound care here in the hospital. He left AMA the night of the , and came back the morning of the for readmission. He was admitted overnight for ongoing wound care, IV antibiotics, and on the morning of the , his wound has looked significantly better with decrease cellulitis and swelling. At this time, cultures have grown out Staph aureus. It looks like it is n ot MRSA, and he will be discharged on Keflex. CONDITION ON DISCHARGE: Good. He has been afebrile, vital signs are stable. He is alert and orien daphnie. Very mild withdrawal signs. Wound is clean and dry. Evaluated by podiatry who provided wound care. FOLLOWUP INSTRUCTIONS: He needs to follow up with Dr. Ramirez as an outpatient in 2 weeks for stitch removal and wound check. He also should establish care with [facility]. Case management will give him information on this prior to discharge. DISCHARGE MEDICATIONS: He will be given a prescription for Keflex, to complete treatment for cellul itis as an outpatient. Total time spent today with coordination of care, 35 minutes. /[id number]/MODL
[2016-12-14] MEDS: KETOROLAC 30 MG/1 ML SDV IVP PRN (11:32)
== END 2016-12-14 12:42 | disposition home or self-care (01) | DRG 603 ==
LOC: EEVIPCON 05:12 → F1N 06:07
PROVIDERS: ADMIT Internal Medicine; ATTEND Internal Medicine
DX: L03.116 Cellulitis of left lower limb (principal); L02.612 Cutaneous abscess of left foot; F11.23 Opioid dependence with withdrawal; F17.210 Nicotine dependence, cigarettes, uncomplicated; B95.8 Unspecified staphylococcus as the cause of diseases classified elsewhere
CPT/HCPCS: J0690; J1170; J1885; J2405; J3370

== ENCOUNTER 2017-02-21 17:00 | Emergency (ER) | payer MEDICAID ==
--- NOTE | 2017-02-21 17:53 | EDPHY ---
General - History Smoking Status: Current every day smoker Narrative: CHIEF COMPLAINT: Abnormal appearance of scar HISTORY OF PRESENT ILLNESS: Patient complains of abnormal appearance of the scar as well as some pain, discomfort and fullness of the area. This has been going on for nearly 8 months. The incision is from implantation of naltrexone absorbable medication. This was done about a year ago by plastic surgeon back in [place]. He says the scar was fine for several months, but then began to change. It began to widened. It has began to thin out. It has become painful over the past few days or weeks. He is not entirely sure but he is concerned as it might be infected of the might be a foreign body in there. He has no fever. No redness. No complaints elsewhere. No other associated complaints. There are no modifying factors for this. REVIEW OF SYSTEMS: Ten systems reviewed and are negative unless otherwise noted in the HPI PAST MEDICAL HISTORY: Previous opiate dependency PAST SURGICAL HISTORY: Surgical implantation of naltrexone SOCIAL HISTORY: Nonsmoker. Originally from [place]. Lives with his family FAMILY HISTORY: Noncontributory EXAMINATION General Appearance: Alert, no distress Head: normocephalic, atraumatic Eyes: Pupils equal and round, no conjunctival pallor or injection ENT, Mouth: Mucous membranes moist Neck: Normal inspection, supple, non-tender Respiratory: Lungs are clear to auscultation. No wheezing, rhonchi or crackles Cardiovascular: Regular rate and rhythm. No murmur Gastrointestinal: Abdomen is soft and nontender Back: non-tender, no bony abnormalities. There is a surgical incision on the left lower flank that has a thin skin appearance. There are palpable areas of foreign body versus cyst. No fluctuance. No induration. No surrounding cellulitis or erythema. Skin: Warm and dry, no rash. Skin changes of the back as noted above Extremities: Nontender, no pedal edema Psychiatric: Mood and affect normal DIFFERENTIAL DIAGNOSES: Including but not limited to scar, retained foreign body, stress more, abscess, MDM: 5:50 p.m. Complaints regarding a surgical incision scar on the left lower side of his back. This has the appearance of a poorly healing scar. There is no purulence. No fluctuance. No evidence of infection. This has been going on for months for him. I suspect there may be retained naltrexone pellets that were implanted there last year. He has no complaints that would suggest he has any systemic involvement. I do feel he is stable for discharge home with workup palpation with a substitute school nurse or plastic surgeon for revision. He in his father comfortable this plan. Discharged home stable condition ([facility] [place]) The patient was evaluated and managed by the physician surgeon assistant. I have reviewed this chart and I agree with the findings and plan of care as documented , as indicated by my signature. I am the secondary supervising physician. ( Kath Bell) - Objective Vital Signs: Initial Vital Signs Temperature (C) 36.7 C 02/21/17 17:10 Heart Rate 71 02/21/17 17:10 Respiratory Rate 18 02/21/17 17:10 Blood Pressure 103/43 L 02/21/17 17:10 O2 Sat (%) 95 02/21/17 17:10 O2 Delivery Mode Room Air Allergies/Adverse Reactions: No Known Allergies Allergy (Verified 02/21/17 17:14) Home Medications: Medication Instructions Recorded NK [No Known Home Meds] 02/21/17 Departure - Departure Disposition: Home, Routine, Self-Care Clinical Impression: Scar atrophic, Foreign body (FB) in soft tissue Condition: Good Instructions: Soft Tissue Foreign Body (ED), Chronic Wounds (ED) Additional Instructions: 1. Follow up with primary care physician and plastic surgeon for definitive care 2. Return to ED for any fluctuance, purulence, redness or fever Referrals: UNKNOWN,DOCTOR [Other] - As per Instructions Nakita Zuniga JR, MD [Medical Doctor] - As per Instructions
[2017-02-21 18:16] VITALS: BP 116/68; PULSE 75; RESP 16; TEMP 98.4; O2SAT 93
== END 2017-02-21 18:16 | disposition home or self-care (01) ==
DX: L90.5 Scar conditions and fibrosis of skin (principal); S30.851A Superficial foreign body of abdominal wall, initial encounter; F17.200 Nicotine dependence, unspecified, uncomplicated; W45.8XXA Other foreign body or object entering through skin, initial encounter; Y99.8 Other external cause status